=== PATIENT | male | born 1990 | race African-American/Black ===

== ENCOUNTER 2019-08-31 06:35 | Day surgery (SDC) | payer OTHER ==
[~2019-08-31] VITALS: Ht 172.7 cm; Wt 100.2 kg
[~2019-08-31 06:35] MED LIST: LIDOCAINE 1% MDV 20ML VIAL SQ PRN; [UNRECOGNIZED DRUG - REMARK]; vitamin d PO
[2019-08-31] MEDS ORDERED: ceFAZolin SOD 2 GM in IV 1 EA IV ONE (07:00)
[2019-08-31] MEDS ORDERED: LR 1,000 ML IV ONE (07:00)
[2019-08-31] MEDS ORDERED: propofoL 200 MG/20 ML VIAL As Ordered ONE (08:10)
[2019-08-31] MEDS ORDERED: SUCCINYLCHOLINE 100 MG/5 ML SYRINGE (J0330) As Ordered ONE (08:10)
[2019-08-31] MEDS ORDERED: ROCURONIUM BROMIDE 50 MG/5 ML VIAL As Ordered ONE (08:10)
[2019-08-31] MEDS ORDERED: fentaNYL 250 MCG/5 ML INJECTION (J3010) As Ordered ONE (08:10)
[2019-08-31] MEDS ORDERED: LIDOCAINE 2% 100MG/5ML SDV (FOR ANES.) As Ordered ONE (08:10)
[2019-08-31] MEDS ORDERED: MIDAZOLAM INJ 2MG/2ML VIAL (J2250 PER 1MG) As Ordered ONE (08:10)
[2019-08-31] MEDS ORDERED: BUPIVACAINE/EPIN 0.25% 30 ML VIAL As Ordered ONE (08:37)
[2019-08-31] MEDS ORDERED: ACETAMINOPHEN 1000MG 100ML IV BTL (OFIRMEV) (J0131 PER 10MG) As Ordered ONE (09:24)
[2019-08-31] MEDS ORDERED: SUGAMMADEX SODIUM 500 MG/5 ML VIAL (BRIDION) As Ordered ONE (09:47)
[2019-08-31] MEDS ORDERED: ONDANSETRON 4MG/2ML VIAL IV PRN (11:15)
[2019-08-31] MEDS ORDERED: NORCO, ANEXSIA 5/325MG TABLET (HYDROcodone/ACETAMINOPHEN) PO PRN (11:15)
[2019-08-31] MEDS ORDERED: LR 1,000 ML IV SCH (11:15)
[2019-08-31] MEDS: oxyCODONE 5MG TAB PO PRN ×2 (11:25→11:53)
[2019-08-31] MEDS: fentaNYL 100 MCG/2 ML INJECTION (J3010) IV PRN ×2 (11:41→11:48)
[2019-08-31 13:35] VITALS: BP 125/68
[2019-08-31] MEDS ORDERED: NORC1TAB7 PO (19:32)
== END 2019-08-31 14:01 | disposition home or self-care (01) ==
LOC: M SDC 06:35
PROVIDERS: ATTEND Surgery
DX: K40.90 Unilateral inguinal hernia, without obstruction or gangrene, not specified as recurrent (principal)
CPT/HCPCS: 49650; C1781; J0131; J0330; J0690; J2250; J2405; J3010

== ENCOUNTER 2019-10-28 15:37 | Emergency (ER) | payer OTHER ==
[~2019-10-28 15:37] MED LIST changes: -LIDOCAINE 1% MDV 20ML VIAL SQ PRN; +NORC1TAB7 PO
[2019-10-28] MEDS ORDERED: predniSONE 20 MG TAB As Ordered ONE (17:41)
[2019-10-28] MEDS ORDERED: GABAPENTIN 300 MG CAP As Ordered ONE (17:44)
[2019-12-06 08:19] LABS: APPEARANCE, URINE CLEAR (CLEAR); BACTERIA, URINE AUTO NEGATIVE (NEGATIVE); BILIRUBIN, URINE AUTO NEGATIVE (NEGATIVE); BLOOD, URINE BLOOD NEGATIVE (NEGATIVE); COLOR, URINE YELLOW (YELLOW); GLUCOSE, URINE (UA) AUTO NEGATIVE (NEGATIVE); KETONE, URINE AUTO TRACE mg/dL (NEGATIVE); LEUKOCYTE ESTERASE, URINE AUTO NEGATIVE (NEGATIVE); MUCUS, URINE SMALL (NEGATIVE); NITRITE, URINE AUTO NEGATIVE (NEGATIVE); PROTEIN, URINE AUTO NEGATIVE (NEGATIVE); RBC, URINE AUTO 1 /HPF (0-3); SPECIFIC GRAVITY URINE AUTO 1.027 (1.002-1.035); SQUAMOUS EPITHELIAL CELL UR AU 0 /HPF (0-6); WBC, URINE AUTO 0 /HPF (0-3)
[2019-12-06 10:18] LABS: HEMOGLOBIN 14.9 g/dl (13.5-17.5); MEAN CORPUSCULAR HGB CONC 33.9 g/dl (32.0-36.5); MEAN CORPUSCULAR VOLUME 88.7 fl (80.0-96.0); PLATELET COUNT, AUTOMATED 171 10^3/uL (150-450); RED BLOOD COUNT 4.96 10^6/uL (4.30-6.10); WHITE BLOOD COUNT 6.7 10^3/uL (4.0-10.0)
[2019-12-06 13:50] LABS: BLOOD UREA NITROGEN 12 MG/DL (7-18); CALCIUM LEVEL 9.1 MG/DL (8.5-10.1); CARBON DIOXIDE LEVEL 26 MEQ/L (21-32); CHLORIDE LEVEL 109 MEQ/L (98-107); CREATININE FOR GFR 1.32 MG/DL (0.70-1.30); GLOMERULAR FILTRATION RATE > 60.0 (>60); GLUCOSE, FASTING 75 MG/DL (70-100); POTASSIUM SERUM 4.1 MEQ/L (3.5-5.1); SODIUM LEVEL 142 MEQ/L (136-145)
== END 2019-10-28 18:49 | disposition home or self-care (01) ==
LOC: M ED 15:37
DX: M54.42 Lumbago with sciatica, left side (principal); R32 Unspecified urinary incontinence; Z72.0 Tobacco use; Z79.899 Other long term (current) drug therapy; Z79.1 Long term (current) use of non-steroidal anti-inflammatories (NSAID); Z79.82 Long term (current) use of aspirin

== ENCOUNTER → 2020-09-16 | Outpatient (REF) ==
--- NOTE | 2020-09-16 09:01 | REPPI ---
INDICATION: HAND/FOOT PAIN COMPARISON: None. TECHNIQUE: AP, lateral, bilateral oblique views right and left hand. FINDINGS: Right hand demonstrates old boxer's fracture of the 5th metacarpal bone. There is very minimal periarticular sclerosis and trace joint space narrowing at the interphalangeal. Remainder of the examination is essentially age-appropriate. Left hand demonstrates very minimal periarticular sclerosis and trace joint space narrowing at the interphalangeal. Remainder of the examination is essentially age-appropriate. 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 Old right 5th metacarpal bone fracture.. <Electronically signed by Tony Scott > 09/16/20 [id number]
--- NOTE | 2020-09-16 09:09 | REPPI ---
INDICATION: HAND/FOOT PAIN COMPARISON: None. TECHNIQUE: AP, lateral, bilateral oblique views right and left foot. FINDINGS: The osseous structures and joint spaces are intact. Mild degenerative changes noted at the bilateral 1st metatarsophalangeal joints including periarticular sclerosis and minimal joint space narrowing. Remainder of the examination is essentially age-appropriate bilaterally. There is no evidence for acute fracture or dislocation. Surrounding soft tissues are unremarkable. No subcutaneous emphysema or radiodense foreign body. IMPRESSION: Mild symmetric degenerative changes at the bilateral 1st MTP joint. Otherwise age-appropriate examination. <Electronically signed by Tony Scott > 09/16/20 [id number]
== END ==
LOC: M PLAIMG 08:07
PROVIDERS: ATTEND Internal Medicine
DX: M79.672 Pain in left foot (principal); M79.671 Pain in right foot; M79.642 Pain in left hand; M79.641 Pain in right hand

== ENCOUNTER → 2021-09-28 | Outpatient (CLI) | payer OTHER | LOC: M WUC 13:07 | PROVIDERS: ATTEND Family Medicine Adult Medicine | DX: Z11.1 Encounter for screening for respiratory tuberculosis (principal) ==